=== PATIENT | female | born 1985 | race Hispanic/Latino ===

== ENCOUNTER 2024-05-08 17:47 | Emergency (ER) | payer OTHER ==
[2024-05-08] MEDS ORDERED: Ondansetron PF 4 MG/2 ML Vial ONE ×2 (18:32→21:17)
[2024-05-08] MEDS ORDERED: Morphine 4 MG/ML VIAL ONE (18:32)
[2024-05-08] MEDS ORDERED: Sodium Chloride 0.9% 1,000 ML ONE (18:33)
[2024-05-08 19:21] LABS: #Basophils 0.1 thou/uL (0.0-0.2); #Eosinphils 0.1 thou/uL (0.0-0.7); #Lymphocytes 3.3 thou/uL (1.20-3.40); #Monocytes 0.6 thou/uL (0.11-0.59); %Basophils 1.3 % (0.0-1.0); %Eosinophils 1.4 % (0.0-10.0); %Lymphocytes 46.3 % (21.0-51.0); %Monocytes 8.3 % (0.0-10.0); %Neutrophils 42.7 % (42.0-75.0); Hematocrit 42.3 % (36.0-47.0); Mean Corpuscular Hemoglobin 31.5 pg (27.0-31.0); Mean Corpuscular Volume 95.5 fl (78.0-98.0); Mean Platelet Volume 6.2 fL (7.4-10.4); Platelet Count 206 10x3/uL (130-400); RBC Distribution Width 12.2 % (11.5-14.5); Red Blood Cell (RBC) Count 4.43 mill/uL (4.20-5.40); White Blood Cell (WBC) Count 7.1 10x3/uL (4.8-10.8)
[2024-05-08 19:25] LABS: ALT (SGPT) 10 U/L (8-55); AST (SGOT) 13 U/L (5-34); Albumin 3.8 g/dL (3.5-5.0); Alkaline Phosphatase 53 U/L (40-110); Anion Gap 13 mmol/L (10-20); BUN (Urea Nitrogen) 10 mg/dL (7.0-18.7); Bilirubin, Total 0.4 mg/dL (0.2-1.2); Calc. Creatinine Clearance 0 mL/min (70-130); Carbon Dioxide 23 mmol/L (22-29); Chloride 107 mmol/L (98-107); Estimated GFR 110; Globulin 2.6 g/dL (2.4-3.5); Glucose 84 mg/dL (70-105); Potassium 3.8 mmol/L (3.5-5.1); Protein, Total 6.4 g/dL (6.0-8.3); Sodium 139 mmol/L (136-145)
[2024-05-08] MEDS ORDERED: Morphine 2 MG/ML VIAL ONE (20:29)
[2024-05-08 20:32] LABS: Bilirubin Negative (Negative); Blood, Urine Large (Negative); Glucose, Urine (Dipstick) Negative (Negative); Ketone, Urine Negative (Negative); Leukocyte Small (Negative); Nitrite Negative (Negative); Protein, Urine (Dipstick) Negative (Neg-Trace); Urobilinogen 0.2 mg/dL (Less than 2)
[2024-05-08 20:45] LABS: Bacteria/HPF 2+ HPF (None Seen); CAUTI Indications for Culture Pelvic or flank pain; Clarity Hazy (Clear); Transitional Epithelial 0-3 HPF (None Seen)
[2024-05-08 20:46] LABS: Pregnancy Test - Urine (BHCG) Negative (Negative); Pregu Control Background? CLEAR/WHITE (CLR/WHITE); Pregu Control Bar Appear? YES (CONTROL BAR); Urine Culture Reflex No No
[2024-05-08] MEDS ORDERED: Ketorolac Tromethamine 30 MG (1 mL) VIAL ONE (22:15)
[2024-05-08] MEDS ORDERED: cefTRIAXone (ROCEPHIN) 1 GM VIAL ONE (22:16)
[2024-05-08] MEDS ORDERED: Promethazine HCl 25 MG/ML VIAL ONE (22:16)
== END 2024-05-08 23:20 | disposition home or self-care (01) ==
LOC: NAV ERS 17:47
DX: K50.90 Crohn's disease, unspecified, without complications (principal); R11.2 Nausea with vomiting, unspecified; F17.200 Nicotine dependence, unspecified, uncomplicated
CPT/HCPCS: 74177; 80053; 81001; 81025; 83605; 85025; 96361; 96374; 96375; 96376; J0696; J1885; J2270; J2272; J2405; J2550; J7050